=== PATIENT | female | born 1950 | race Caucasian/White ===

== ENCOUNTER 2016-12-23 11:15 | Inpatient (IN) | payer MEDICARE ==
--- NOTE | 2016-12-23 12:17 | RAD ---
12/23/2016 12:11 PM CHEST - 2 VIEWS History: Fever since last night. Comparison: 09/18/2016 Findings: Two views of the chest are obtained. The lungs consolidation is noted at the right posterior base, new in comparison to prior study. The cardiomediastinal silhouette is unremarkable.. The osseous structures are intact.. IMPRESSION: Right posterior lower lobe pneumonia.
[2016-12-23 12:21] LABS: ABSOLUTE NEUTROPHIL COUNT 17.9 K/mm3 (1.8-7.7); BASO % 0.1 % (0.2-1.0); EOS # 0.1 (0.0-0.5); EOS % 0.2 % (0.9-2.9); HEMOGLOBIN 12.1 gm/l (12.0-16.0); IMM NEUT # 0.2 K/mm3 (0-0.2); IMM NEUT% 0.7 % (0-1); LYMPH # 1.6 (1.0-4.8); LYMPH % 7.8 % (15-45); MEAN CORPUSCULAR HEMOGLOBIN 28.7 pg (27.0-31.0); MEAN CORPUSCULAR HGB CONC 31.8 g/dl (33.0-37.0); MONO # 0.9 (0.0-0.8); MONO % 4.1 % (4-12); NEUT % 87.1 % (43-75); PLATELET COUNT 267 K/mm3 (130-400); RED CELL DISTRIBUTION WIDTH 13.6 % (11.5-14.5)
[2016-12-23 12:27] LABS: ALB/GLOB RATIO 0.9 (>1.0); ALBUMIN 3.3 gm/dL (3.5-5.7); CALCIUM 8.8 mg/dL (8.6-10.3)
[2016-12-23 12:35] LABS: PH,URINE 6.5 (5.0-8.0); URINE BILIRUBIN NEGATIVE (NEGATIVE); URINE BLOOD 2+ (NEGATIVE); URINE GLUCOSE (UA) NEGATIVE (NEGATIVE); URINE LEUKOCYTE ESTERASE NEGATIVE (NEGATIVE); URINE NITRITE NEGATIVE (NEGATIVE); URINE PROTEIN TRACE (NEGATIVE)
[2016-12-23 12:39] LABS: URINE APPEARANCE CLEAR; URINE COLOR YELLOW; URINE UROBILINOGEN 4 mg/dL (0-1 mg/dl)
[2016-12-23 12:50] LABS: URINE BACTERIA TRACE; URINE EPITHELIAL CELLS FEW /hpf; URINE WBC RARE /hpf
[2016-12-23] MEDS ORDERED: SODIUM CHLORIDE 0.9% 1,000 ML ONE (13:24)
[2016-12-23] MEDS ORDERED: AZITHROMYCIN 500 MG VIAL ONE (13:34)
[2016-12-23] MEDS ORDERED: SODIUM CHLORIDE 0.9% 250 ML IV ONE (13:34)
[2016-12-23] MEDS ORDERED: PIPERACILLIN-TAZO PREMIX BAG 50 ML IV ONE (13:34)
[2016-12-23] MEDS ORDERED: AZITHROMYCIN 500 MG in SODIUM CHLORIDE 0.9% 250 ML IV ONE (13:45)
[2016-12-23 14:39] VITALS: BMI 29.8
[2016-12-23 14:51] LABS: BAND 1 % (0-10); EOSINOPHIL 0 % (1-3); LYMPHOCYTE 11 % (15-45); NEUTROPHILS 81 % (43-75); TOTAL CELLS COUNTED 100
[2016-12-23 14:52] LABS: BASOPHIL 0 % (0-1); MONOCYTE 7 % (4-12); PLATELET ESTIMATE NORMAL (NORMAL)
[2016-12-23] MEDS ORDERED: MENTHOL/CETYLPYRD 1 EACH LOZENGE PO PRN (16:26)
[2016-12-23] MEDS ORDERED: MAGNESIUM HYDROXIDE 30 ML UDCUP PO PRN (16:26)
[2016-12-23] MEDS ORDERED: BISACODYL 5 MG TABLET.EC PO PRN (16:26)
[2016-12-23] MEDS ORDERED: BISACODYL 10 MG SUP PR PRN (16:26)
[2016-12-23] MEDS ORDERED: BLISTEX LIPSTICK 1 EACH TP PRN (16:26)
[2016-12-23] MEDS ORDERED: SODIUM CHLORIDE 0.9% 100 ML IV PRN (16:26)
[2016-12-23] MEDS ORDERED: ALBUTEROL NEB 2.5 MG/3 ML VIAL.NEB NEB PRN (16:29)
[2016-12-23] MEDS ORDERED: SODIUM CHLORIDE 0.9% 500 ML IV SCH (16:30)
[2016-12-23] MEDS ORDERED: POTASSIUM CHLORIDE 20MEQ/100ML 100 ML IV ONE (16:36)
[2016-12-23] MEDS ORDERED: PROMETHAZINE HCL 25 MG TABLET PO PRN (16:36)
[2016-12-23] MEDS ORDERED: HYDROMORPHONE HCL 2 MG/ML SYRINGE IV PRN (16:58)
[2016-12-23] MEDS ORDERED: PUMP TUBING ONE ×2 (17:06→18:04)
[2016-12-23] MEDS: ENOXAPARIN SODIUM 40 MG/0.4 ML SYRINGE SUB-Q SCH (17:10)
[2016-12-23] MEDS: PREDNISONE 20 MG TABLET PO SCH (17:25)
[2016-12-23] MEDS: HYDROMORPHONE HCL 1 MG/ML SYRINGE IV PRN ×2 (17:25→19:55)
--- NOTE | 2016-12-23 18:06 | HP ---
RONNIE FLOWERS DATE OF ADMISSION: December 23, 2016 CHIEF COMPLAINT: Groin sores, cough and shortness of breath. HISTORY OF PRESENT ILLNESS: Ronnie is a 66-year-old female with longstanding psoriasis as well as underlying chronic obstructive pulmonary disease. She presented to the emergency room today with her main concern being sores in her groin and buttock area that she felt was a result of her psoriasis. She also, though, had a cough for the last two weeks that has gotten worse in the last day or so. She has had a fever that came on last night and she feels more short of breath than normal. In the emergency room, she was worked up and found to have lesions consistent with psoriasis in the gluteal folds and the right upper, inner thigh. Lesions consistent with skin breakdown as well as evidence of a right lower lobe pneumonia with an oxygen requirement. It was elected to admit her to the hospitalist service for further treatment. REVIEW OF SYSTEMS: No headache, no visual changes, no difficulty swallowing, no chest pain. She does have a cough and mild shortness of breath as well as a fever that came on just last night. Her cough has been getting worse over the last two weeks. It is occasionally productive of sputum. No abdominal pain, no nausea, vomiting, diarrhea. No extremity weakness, numbness, tingling or swelling. She does have the psoriasis lesions in the gluteal folds that is no different than normal as well as a new skin breakdown ulceration in the right upper inner thigh. PAST MEDICAL HISTORY: 1. Psoriasis. 2. Chronic obstructive pulmonary disease O2 dependent with chronic respiratory failure with O2 dependence at night. 3. Chronic depression. 4. Hyperlipidemia. 5. History of sepsis back in 2008 cared for up at [facility]. 6. Chronic pain on chronic narcotics. PAST SURGICAL HISTORY: 1. Colonoscopy some time in the last ten years by her report. 2. Cervical spine fusion in the distant past. 3. Distant history of hysterectomy. 4. Distant history of appendectomy. 5. Distant history of open cholecystectomy. ALLERGIES: 1. KEFLEX. 2. VANCOMYCIN. CURRENT MEDICATIONS: 1. Calcipotriene/betamethasone ointment 60 g twice daily topically. 2. Spiriva 18 mcg inhaled daily. 3. MS Ystkic70 mg plus 30 mg orally three times daily (45 mg orally three times daily total.) 4. Morphine immediate release 15 mg orally three times daily. 5. Promethazine 25 mg orally every eight hours as needed. 6. Sertraline 100 mg orally daily. 7. Pseudoephedrine 120 orally daily. 8. Simvastatin 20 mg orally at bedtime. 9. Trazodone 150 mg orally at bedtime. FAMILY HISTORY: Noncontributory. SOCIAL HISTORY: She was this last year. She has a 40 to 50 pack-year history of smoking though has quit several months ago. No alcohol or drug use. She now lives with her son and her family in this area. Her regular primary physician is Dr. Chandrakant Alaniz in [facility]. PHYSICAL EXAMINATION: VITAL SIGNS: Blood pressure 162/98, pulse 88 and regular, respirations 20 and unlabored, temperature 98.2 degrees, O2 saturation is 88% on room air. GENERAL: This is an obese, elderly female. She is alert, calm, no acute distress. She does have a wheezy cough. HEENT: Normocephalic, atraumatic. Tympanic membranes are clear. Extraocular movements are intact. Pupils equal, round and reactive to light. Oropharynx with poor dentition. NECK: Is supple. No lymphadenopathy no bruits. LUNGS: She does have expiratory wheezes scattered in all telles bilaterally. She has bilateral basilar rales. HEART: Regular rate and rhythm. No murmurs. ABDOMEN: Is soft, nontender, nondistended. No rebound, no guarding. EXTREMITIES: With no edema. SKIN: She does have a lesion in the gluteal fold consistent with psoriasis. There is a little bit of weeping with this. On the right upper inner thigh, she has an area of excoriation approximately 3 x 8 cm. LABORATORIES: CBC with a white count of 20.6 with 81% neutrophils, 1% bands, 11% lymphs, 7% monocytes, and 0% eosinophils, hemoglobin of 12.1, hematocrit 38.0, platelets of 267. Chemistry panel, sodium 139, potassium 3.0, chloride 98, carbon dioxide 30, BUN of 10, creatinine 0.6, glucose of 140, total bilirubin 1.5, AST 11, ALT 7, alkaline phosphatase of 82. Lactate is normal at 1.5. Urinalysis with negative nitrites, negative leukocyte esterase, trace bacteria. Blood cultures are pending. Influenza A and B are both negative. IMAGING: Chest x-ray shows a right lower lobe infiltrate. ASSESSMENT: 1. Community acquired pneumonia, right lower lobe. 2. Chronic obstructive pulmonary disease exacerbation. 3. Psoriasis with stable lesions in the gluteal fold. 4. Right groin lesion/skin excoriation consistent with skin breakdown ulcer. 5. Chronic pain on chronic narcotic therapy. PLAN: 1. I have admitted her to the floor. 2. Given the concern about the right lower lobe in the context of rather high dose narcotic use, I do have a concern about possible aspiration, therefore, I placed her on Zosyn in addition to azithromycin. Cultures are pending. A lot of her symptoms seem to be chronic obstructive pulmonary disease related, so we placed her on oral prednisone as well in addition to nebulizers as needed and her usual inhalers. 3. For her psoriasis, we are going to continue with her normal calcipotriene/betamethasone. We will continue with barrier creams on the groin lesion. 4. We will replace her potassium and follow closely. 5. Consider a wound care consult with STEPS depending on how she progresses overnight. 6. For her chronic pain, we will continue on her regular regimen and supplement as needed. 7. Lovenox for deep venous thrombosis prophylaxis. 8. Further care as dictated by her clinical course.
[2016-12-23] MEDS: ACETAMINOPHEN 325 MG TABLET PO PRN (19:07)
[2016-12-23] MEDS: SODIUM CHLORIDE 0.9% 1,000 ML IV SCH ×2 (19:33→19:34)
[2016-12-23] MEDS: PIPERACILLIN-TAZO PREMIX BAG 3.375 G in Premix (D5W) 50 ml 1 EACH IV SCH (19:57)
[2016-12-23] MEDS: TRAZODONE HCL 50 MG TABLET PO SCH (21:55)
[2016-12-23] MEDS: MORPHINE SULFATE 15 MG TAB.PRT.SR PO SCH (21:56)
[2016-12-23] MEDS: DOCUSATE SODIUM 100 MG CAPSULE PO SCH (21:56)
[2016-12-23] MEDS: MORPHINE SULFATE 30 MG TAB.PRT.SR PO SCH (21:56)
[2016-12-23] MEDS: SERTRALINE HCL 50 MG TABLET PO SCH (22:04)
[2016-12-24] MEDS: PIPERACILLIN-TAZO PREMIX BAG 3.375 G in Premix (D5W) 50 ml 1 EACH IV SCH ×4 (02:17→19:54)
[2016-12-24] MEDS: SODIUM CHLORIDE 0.9% 1,000 ML IV SCH ×2 (05:17→06:14)
[2016-12-24 05:47] LABS: BASO % 0.2 % (0.2-1.0); HEMOGLOBIN 12.6 gm/l (12.0-16.0); IMM NEUT # 0.1 K/mm3 (0-0.2); IMM NEUT% 0.7 % (0-1); LYMPH # 1.1 (1.0-4.8); LYMPH % 6.4 % (15-45); MEAN CELL VOLUME 93.6 fl (81.0-99.0); MEAN CORPUSCULAR HEMOGLOBIN 28.8 pg (27.0-31.0); MEAN CORPUSCULAR HGB CONC 30.7 g/dl (33.0-37.0); MEAN PLATELET VOLUME 9.9 fl (7.4-10.4); MONO # 0.4 (0.0-0.8); MONO % 2.4 % (4-12); NEUT % 90.3 % (43-75); PLATELET COUNT 204 K/mm3 (130-400); RED CELL DISTRIBUTION WIDTH 13.5 % (11.5-14.5)
[2016-12-24 06:14] LABS: ALB/GLOB RATIO 0.8 (>1.0); ALBUMIN 3.3 gm/dL (3.5-5.7); CALCIUM 8.6 mg/dL (8.6-10.3)
[2016-12-24 07:16] LABS: BAND 1 % (0-10); BASOPHIL 0 % (0-1); EOSINOPHIL 0 % (1-3); LYMPHOCYTE 8 % (15-45); MONOCYTE 1 % (4-12); NEUTROPHILS 90 % (43-75); PLATELET ESTIMATE NORMAL (NORMAL); TOTAL CELLS COUNTED 100
[2016-12-24] MEDS ORDERED: PSEUDOEPHEDRINE HCL 120 MG PO SCH (09:00)
[2016-12-24] MEDS: PREDNISONE 20 MG TABLET PO SCH (09:34)
[2016-12-24] MEDS: MORPHINE SULFATE 30 MG TABLET PO PRN ×3 (09:35→20:29)
[2016-12-24] MEDS: MORPHINE SULFATE 30 MG TAB.PRT.SR PO SCH ×3 (09:35→20:28)
[2016-12-24] MEDS: DOCUSATE SODIUM 100 MG CAPSULE PO SCH ×2 (09:35→20:28)
[2016-12-24] MEDS: MORPHINE SULFATE 15 MG TAB.PRT.SR PO SCH ×3 (09:35→20:28)
[2016-12-24] MEDS ORDERED: HYDROMORPHONE HCL 1 MG/ML SYRINGE IV PRN (10:12)
--- NOTE | 2016-12-24 10:13 | PDOC43 ---
- Subjective Chief Complaint: Cough, SOB, Groin lesion Feling sl better this AM. Still with cough, but decreased SOB. No F/C. Groin and buttock lesions still painful. - Objective Vital Signs Temperature 98.1 F 12/24/16 05:07 Pulse Rate 80 12/24/16 05:07 Respiratory Rate 20 12/24/16 05:07 Blood Pressure 113/54 12/24/16 05:07 O2 Saturation by Pulse Oximetry 92 12/24/16 05:07 Oxygen Delivery Method Nasal Cannula Oxygen Flow Rate 2 Intake and Output 12/23/16 12/24/16 12/25/16 06:59 06:59 06:59 Intake Total 3521 Output Total 925 Balance 2596 General: Alert, Oriented x3, Cooperative, No Acute Distress Lungs: Clear to Auscultation Bilaterally Cardiovascular: Regular Rate and Rhythm Abdomen: Soft, Normal Bowel Sounds, Non-Distended, No Tenderness Extremities: No Edema Skin: Other (R inner thigh lesion unchanged. Gluteal lesion unchanged.) Laboratory 12/24/16 05:15 12/24/16 05:15 12/24/16 05:15 MCHC 30.7 L Estimated GFR 100 H Total Bilirubin 1.5 H AST 11 L Albumin 3.3 L Globulin 3.9 H Albumin/Globulin Ratio 0.8 L Current Medications: Current meds reviewed in EMR. - Problems: Assessment/Plan (1) CAP (community acquired pneumonia) Status: AcuteAssessment/Plan: POA, presumed bacterial. In context of COPD exacerbation. Wheezing resolved today. Still with sl more O2 requirement tnan nl. Con't current Zosyn/Azithro and await cx results. Con't nebs/prednisone for COPD component. (2) COPD (chronic obstructive pulmonary disease) Qualifiers: COPD type: unspecified COPD Qualifier Code: (J44.9) Chronic obstructive pulmonary disease, unspecified Status: ChronicAssessment/Plan: As above. Baseline is O2 requirement at night only. (3) Psoriasis Status: ChronicAssessment/Plan: With long standing gluteal lesions. Con't usual Calcipotriene/betamethasone ointment. May benefit from repeat MTX tx as outpt- will defer to derm as outpt. (4) Skin ulcer Status: ChronicAssessment/Plan: Inner thigh lesion does not appear to be d/t psoriasis- more c/w skin breakdown. Will tx with honey/dressing 3x/week. (5) Chronic pain Qualifiers: Chronic pain type: other chronic pain Qualifier Code: (G89.29) Other chronic pain Status: ChronicAssessment/Plan: Transition to usual regimen. VTE Prophylaxis: Lovenox. Disposition: Anticipate d/c home in AM.
[2016-12-24] MEDS ORDERED: POTASSIUM CHLORIDE 20 MEQ in SODIUM CHLORIDE 0.9% 250 ML IV ONE (11:30)
[2016-12-24] MEDS: TIOTROPIUM BROMIDE 18 MCG 5 CAP/INHALER IH SCH (12:15)
[2016-12-24] MEDS ORDERED: IV START KIT ONE ×2 (12:56→15:48)
[2016-12-24] MEDS ORDERED: AZITHROMYCIN 500 MG in SODIUM CHLORIDE 0.9% 250 ML IV SCH (14:30)
[2016-12-24] MEDS: BETAMETHASONE TP SCH ×3 (14:40→20:30)
[2016-12-24] MEDS: CALCIPOTRIENE TP SCH ×3 (14:40→20:30)
[2016-12-24] MEDS: ENOXAPARIN SODIUM 40 MG/0.4 ML SYRINGE SUB-Q SCH (15:36)
[2016-12-24] MEDS ORDERED: SODIUM CHLORIDE 0.9% FLUSH 10 ML ONE (15:48)
[2016-12-24] MEDS: TRAZODONE HCL 50 MG TABLET PO SCH (20:28)
[2016-12-24] MEDS: SERTRALINE HCL 50 MG TABLET PO SCH (20:31)
[2016-12-25] MEDS: PIPERACILLIN-TAZO PREMIX BAG 3.375 G in Premix (D5W) 50 ml 1 EACH IV SCH ×2 (01:01→08:04)
[2016-12-25] MEDS: MORPHINE SULFATE 30 MG TABLET PO PRN ×2 (03:59→08:06)
[2016-12-25] MEDS: ACETAMINOPHEN 325 MG TABLET PO PRN (05:55)
[2016-12-25 07:05] VITALS: BP 157/72
[2016-12-25] MEDS: CALCIPOTRIENE TP SCH (08:03)
[2016-12-25] MEDS: BETAMETHASONE TP SCH (08:03)
[2016-12-25] MEDS: DOCUSATE SODIUM 100 MG CAPSULE PO SCH (08:04)
[2016-12-25] MEDS: MORPHINE SULFATE 15 MG TAB.PRT.SR PO SCH (08:04)
[2016-12-25] MEDS: MORPHINE SULFATE 30 MG TAB.PRT.SR PO SCH (08:04)
[2016-12-25] MEDS: SERTRALINE HCL 50 MG TABLET PO SCH (08:05)
[2016-12-25] MEDS: PREDNISONE 20 MG TABLET PO SCH (08:05)
[2016-12-25] MEDS: TIOTROPIUM BROMIDE 18 MCG 5 CAP/INHALER IH SCH (08:06)
--- NOTE | 2016-12-25 10:59 | DS ---
Shelley Petersen ADMIT DATE: 12/23/2016 DISCHARGE DATE: 12/25/2016 ADMIT DIAGNOSES: 1. Community acquired pneumonia right lower lobe presumed bacterial. 2. Chronic obstructive pulmonary disease exacerbation. 3. Psoriasis with longstanding lesion in the gluteal fold. 4. Right groin lesion/excoriation consistent with a skin breakdown ulcer. 5. Chronic pain on chronic narcotic therapy. DISCHARGE DIAGNOSES: 1. Community acquired pneumonia right lower lobe presumed bacterial. 2. Chronic obstructive pulmonary disease exacerbation. 3. Psoriasis with longstanding lesion in the gluteal fold. 4. Right groin lesion/excoriation consistent with a skin breakdown ulcer. 5. Chronic pain on chronic narcotic therapy. All cultures remained negative. ADMIT HISTORY AND PHYSICAL: Please see my dictated note for details. Briefly, Ms. Petersen is a 66-year-old female with longstanding psoriasis as well as underlying chronic obstructive pulmonary disease. She presented to the emergency room on the day of admission with worsening sores in her right groin. She also has a longstanding psoriasis lesion in her gluteal fold area. She also had had worsening cough, shortness of breath, and on the night prior to admission had a fever. In the emergency room, she was worked up and found to have right lower lobe pneumonia with a chronic obstructive pulmonary disease exacerbation. She also had a right inner thigh lesion that was felt to be consistent with skin excoriation/breakdown as well as a longstanding gluteal fold psoriasis lesion. She was admitted to the hospitalist service for treatment of the above. HOSPITAL COURSE: She was started on Zosyn and azithromycin initially due to an initial concern about possible aspiration. It does not appear that aspiration was an issue, however, all cultures remained negative. by day of discharge she really seemed to be back to her baseline. She does normally use oxygen at night and sometimes during the day and this consistent with where she is at the time of discharge. She does occasionally desat into the high 80's on room air while walking and this is most likely baseline. She does have oxygen at home and will continue to use as she has in the past. We did initiate some wound care to her right inner thigh and will continue with three times a week [facility] wound changes with home health providing this service. DISCHARGE MEDICATIONS: 1. Levaquin 500 mg by mouth daily x7 days. 2. Prednisone taper 20 mg by mouth daily x4 more days, then 10 mg by mouth daily x4 days, then off. All other medications as prior to admit as follows: 1. MS Contin 30 mg pill plus 15 mg pill for a total of 45 mg by mouth three times daily as prior to admit. 2. Morphine sulfate immediate release 15 mg by mouth three times daily. 3. Promethazine 25 mg by mouth every 8 hours as needed. 4. Pseudoephedrine 120 by mouth daily. 5. Sertraline 100 mg by mouth daily. 6. Simvastatin 20 mg by mouth at bedtime. 7. Spiriva 18 mcg inhaled daily. 8. Trazodone 150 by mouth at bedtime. 9. Calcipotriene/betamethasone ointment twice daily to her psoriasis lesions. DISCHARGE FOLLOW UP: Will be with her regular physician, Dr. Chandrakant Alaniz up in the [place] area within the next week. We will have home health visiting three times a week to provide wound care to her thigh. Further care dictated by clinical course. JOB: [id number] CC: Dr. Chandrakant Alaniz up in [place]
== END 2016-12-25 11:45 | disposition home or self-care (01) | DRG 194 ==
LOC: ED 11:15 → MS 13:05 → ICU 18:30
PROVIDERS: ADMIT Family Medicine; ATTEND Family Medicine
DX: J18.9 Pneumonia, unspecified organism (principal); J44.1 Chronic obstructive pulmonary disease with (acute) exacerbation; L40.9 Psoriasis, unspecified; F32.9 Major depressive disorder, single episode, unspecified; E78.5 Hyperlipidemia, unspecified; G89.29 Other chronic pain; Z87.891 Personal history of nicotine dependence; S30.811A Abrasion of abdominal wall, initial encounter; S30.810A Abrasion of lower back and pelvis, initial encounter; L08.9 Local infection of the skin and subcutaneous tissue, unspecified

== ENCOUNTER 2017-02-08 21:02 | Emergency (ER) | payer MEDICARE ==
--- NOTE | 2017-02-09 07:54 | RAD ---
ANKLE-RIGHT 3 VIEW History: Ankle pain. Comparison: None. Findings: Views of the right ankle were obtained.The osseous structures appear to be intact. The mortise joint is normal. The talar dome contour appears to be within that expected. No focal soft tissue abnormalities are identified. A prominent posterior calcaneal enthesophyte is visualized. Impression: 1. Soft tissue swelling. 2. A prominent posterior calcaneal spur.
== END 2017-02-08 22:47 | disposition home or self-care (01) ==
LOC: ED 21:02
DX: S82.891A Other fracture of right lower leg, initial encounter for closed fracture (principal); M54.9 Dorsalgia, unspecified; J44.9 Chronic obstructive pulmonary disease, unspecified; F17.210 Nicotine dependence, cigarettes, uncomplicated; W01.198A Fall on same level from slipping, tripping and stumbling with subsequent striking against other object, initial encounter; Y93.K1 Activity, walking an animal; Y92.009 Unspecified place in unspecified non-institutional (private) residence as the place of occurrence of the external cause